=== PATIENT | female | born 1955 ===

== ENCOUNTER 2016-04-17 16:07 | Outpatient (CLI) | payer MEDICARE | END 2016-04-17 16:08 | disposition home or self-care (01) | LOC: LABHHL 16:07 | PROVIDERS: ATTEND Internal Medicine Gastroenterology | DX: Z12.11 Encounter for screening for malignant neoplasm of colon (principal); R10.9 Unspecified abdominal pain; R11.2 Nausea with vomiting, unspecified; R19.7 Diarrhea, unspecified; R63.4 Abnormal weight loss; K30 Functional dyspepsia; R41.3 Other amnesia | CPT/HCPCS: 88305; 88342 ==